=== PATIENT | female | born 1990 | race Caucasian/White ===

== ENCOUNTER 2016-08-26 14:09 | Emergency (ER) | payer OTHER ==
[~2016-08-26] VITALS: Ht 160 cm; Wt 96.5 kg
[~2016-08-26 14:09] MED LIST: CEPH500 PO; DICY1TAB26 PO; ZOFR4TAB3 SL
[2016-08-26 14:11] VITALS: BP 154/97; PULSE 100; RESP 16; TEMP 98.6; O2SAT 98
--- NOTE | 2016-08-26 14:36 | PD ---
HPI Chief Complaint: Tube Splicer Problem/Complaint Time Seen by Provider: 14:23 Travel History International Travel<30 days: No Contact w/Intl Traveler<30days: No Traveled to known affect area: No History of Present Illness HPI The patient was seen and examined in the presence of the nurse. This patient complains of pelvic cramping. Duration is 2 weeks. She had 3 days of bleeding a week ago but it stopped on its own. No bleeding recently. No discharge or fever or vomiting or diarrhea. She has an IUD in place. Symptoms severity is moderate. No alleviating factors. PFSH Past Medical History Diminished Hearing: No Immunizations Current: Yes ?: Not : 1 Past Surgical History Section: Yes Social History Alcohol Use: No Tobacco Use: No Substance Use: No Allergies-Medications (Allergen,Severity, Reaction): Coded Allergies: Sulfa (Verified Allergy, Severe, Dizziness, 08/26/16) CAUSED DIZZINESS, WEAKNESS, AND NAUSEA. Tamiflu (Verified Allergy, Severe, Rash, 08/26/16) Reported Meds & Prescriptions Reported Meds & Active Scripts Active No Active Prescriptions or Reported Medications Review of Systems General / Constitutional: No: Fever Eyes: No: Visual changes HENT: No: Headaches Cardiovascular: No: Chest Pain or Discomfort Respiratory: No: Shortness of Breath Gastrointestinal: No: Abdominal Pain Genitourinary: Positive: Pelvic Pain, Vaginal Bleeding, No: Dysuria Musculoskeletal: No: Pain Skin: No Rash Neurologic: No: Weakness Psychiatric: No: Depression Endocrine: No: Polydipsia Hematologic/Lymphatic: No: Easy Bruising Physical Exam Narrative GENERAL: Well-nourished, well-developed patient in no apparent distress. SKIN: Warm and dry. HEAD: Atraumatic. Normocephalic. EYES: Pupils equal and round. No scleral icterus. No injection or drainage. ENT: No nasal bleeding or discharge. Mucous membranes pink and moist. NECK: Trachea midline. No JVD. CARDIOVASCULAR: Regular rate and rhythm. No murmur appreciated. RESPIRATORY: No accessory muscle use. Clear to auscultation. Breath sounds equal bilaterally. GASTROINTESTINAL: Abdomen soft, non-tender, nondistended. Hepatic and splenic margins not palpable. MUSCULOSKELETAL: No obvious deformities. No clubbing. No cyanosis. No edema. NEUROLOGICAL: Awake and alert. No obvious cranial nerve deficits. Motor grossly within normal limits. Normal speech. PSYCHIATRIC: Appropriate mood and affect; insight and judgment normal. Pelvic: No cervical motion tenderness. IUD string is coming through the cervix as expected. No blood or discharge noted. No adnexal mass or tenderness Data Data Last Documented VS Vital Signs Date Time Temp Pulse Resp B/P Pulse Ox O2 Delivery O2 Flow Rate FiO2 08/26/16 14:11 98.6 100 16 154/97 98 Orders Ed Urine Pregnancytest Poc (08/26/16 14:31) [facility] Medical Decision Making Medical Screen Exam Complete: Yes Emergency Medical Condition: Yes Medical Record Reviewed: Yes Differential Diagnosis Differential diagnosis includes PID, ectopic , ovarian cyst, ovarian torsion, endometriosis. Narrative Course I have reviewed the patient's electronic medical record. Urine is negative No sign of PID No discharge or bleeding IUD string is noted coming through the cervix Stable for outpatient follow-up Has some nonspecific pelvic pain Soft benign abdomen with no clinical suspicion of emergent intra-abdominal process I wrote her some tramadol and recommended [employer] follow-up Diagnosis Primary Impression: Pelvic pain Additional Instructions: The patient was warned about potential sedation for the medications they will receive on prescription. The patient was advised to follow up with their physician and return if they worsen. Med/Other Pt SpecificInfo: Prescription(s) given Scripts Tramadol 50 Mg Tab50 Mg PO Q6H PRN (PAIN) #25 TAB Ref 0 Prov:Milan Hinton MD 08/26/16 Disposition: 01 DISCHARGE HOME Condition: Stable Milan Hinton MD Aug 26, 2016 14:36
[2016-08-26 15:10] VITALS: BP 148/89; PULSE 89; RESP 16; O2SAT 100
[2016-08-26] MEDS ORDERED: TRAM50TA PO (15:19)
== END 2016-08-26 15:32 | disposition home or self-care (01) ==
LOC: PHED 14:09
DX: R10.2 Pelvic and perineal pain (principal)
CPT/HCPCS: 84703; 99283

== ENCOUNTER 2017-02-07 10:23 | Emergency (ER) | payer OTHER ==
[~2017-02-07] VITALS: Ht 160 cm; Wt 98.2 kg
[~2017-02-07 10:23] MED LIST changes: -CEPH500 PO; -DICY1TAB26 PO; +TRAM50TA PO; -ZOFR4TAB3 SL
[2017-02-07 10:24] VITALS: BP 130/91; PULSE 74; RESP 15; TEMP 98.9; O2SAT 100
--- NOTE | 2017-02-07 11:18 | PD ---
HPI Chief Complaint: Cold / Flu Symptoms Time Seen by Provider: 11:00 Travel History International Travel<30 days: No Contact w/Intl Traveler<30days: No Traveled to known affect area: No History of Present Illness HPI 26-year-old female presents emergency department for evaluation of a productive cough. Patient reports cough originated around January 27. She has since been treated with amoxicillin by her PCP. She reports symptoms have not improved. She reports yellowish colored sputum occasionally with coughing. She denies fever, chills, chest pain, shortness of breath. She does report generalized fatigue. Symptoms very moderate. No alleviating factors. PFSH Past Medical History Medical History: Denies Significant Hx Diminished Hearing: No Immunizations Current: Yes Influenza Vaccination: No ?: Not LMP: IUD : 1 Para: 1 Past Surgical History Body Medical Devices: MIRENA IUD Section: Yes Social History Alcohol Use: No Tobacco Use: No Substance Use: No Allergies-Medications (Allergen,Severity, Reaction): Coded Allergies: Sulfa (Verified Allergy, Severe, Dizziness, 02/07/17) CAUSED DIZZINESS, WEAKNESS, AND NAUSEA. Tamiflu (Verified Allergy, Severe, Rash, 02/07/17) Reported Meds & Prescriptions Reported Meds & Active Scripts Active No Active Prescriptions or Reported Medications Review of Systems Except as stated in HPI: all other systems reviewed are Neg General / Constitutional: No: Fever Eyes: No: Visual changes HENT: No: Headaches Cardiovascular: No: Chest Pain or Discomfort Respiratory: Positive: Cough Gastrointestinal: No: Abdominal Pain Genitourinary: No: Dysuria Physical Exam Narrative GENERAL: Well-nourished, well-developed patient. SKIN: Focused skin assessment warm/dry. HEAD: Normocephalic. EYES: No scleral icterus. No injection or drainage. NECK: Supple, trachea midline. No JVD or lymphadenopathy. CARDIOVASCULAR: Regular rate and rhythm without murmurs, gallops, or rubs. RESPIRATORY: Breath sounds equal bilaterally. No accessory muscle use. No wheezing. Patient coughing throughout exam. GASTROINTESTINAL: Abdomen soft, non-tender, nondistended. MUSCULOSKELETAL: No cyanosis, or edema. BACK: Nontender without obvious deformity. No CVA tenderness. Data Data Last Documented VS Vital Signs Date Time Temp Pulse Resp B/P Pulse Ox O2 Delivery O2 Flow Rate FiO2 7/15/17 10:24 98.9 74 15 130/91 100 MDM Medical Decision Making Medical Screen Exam Complete: Yes Emergency Medical Condition: Yes Differential Diagnosis Bronchitis, viral URI, pneumonia, influenza Narrative Course 26-year-old female with chief complaint of cough 11 days. Patient reports the cough is productive and is unrelieved by [id number] medicines. She reports her PCP put her on amoxicillin which did not break symptoms. On exam patient has was consistent with bronchitis. Patient put on azithromycin. Instructed follow-up with her PCP. Diagnosis Primary Impression: Bronchitis Departure Forms: Tests/Procedures, Work Release Enter return to work date: Feb 08, 2017 Additional Instructions: Take the antibiotics as prescribed. Take [id number] Motrin and/or Tylenol as needed for pain. Stay well-hydrated by drinking plenty fluids. Follow up with her primary doctor. Scripts Prednisone 20 Mg Tab40 Mg PO DAILY #10 TAB Take 40 mg (2 tablets) daily for 5 days Prov:Awilda Baltazar 02/07/17 Azithromycin 250 Mg [id number] Mg PO DIRECTED #6 TAB Take 2 tabs (500 mg) on day 1 then 1 tab daily x 4 days. Prov:Awilda Baltazar 02/07/17 Disposition: 01 DISCHARGE HOME Condition: Stable Awilda Batlazar Feb 07, 2017 11:18
[2017-02-07] MEDS ORDERED: AZIT250T3 PO (11:19)
[2017-02-07] MEDS ORDERED: PRED20 PO (11:20)
== END 2017-02-07 11:32 | disposition home or self-care (01) ==
LOC: PHEFT 10:23
DX: J40 Bronchitis, not specified as acute or chronic (principal)
CPT/HCPCS: 99284